=== PATIENT | female | born 1970 | race American Indian/Alaskan Native ===

== ENCOUNTER 2016-11-24 07:19 | Day surgery (SDC) | payer SELFPAY ==
[2016-11-24] MEDS ORDERED: NACL 0.9% 250ML 250 ML IV ONE (08:03)
[2016-11-24] MEDS ORDERED: TYLENOL PO ONE (08:03)
[2016-11-24] MEDS ORDERED: BENADRYL PO ONE (08:04)
[2016-11-24 08:15] LABS: Hematocrit 22.3 % (30.3-42.9); Hemoglobin 6.5 gm/dl (10.1-14.3)
[2016-11-24 13:43] VITALS: BP 103/44
== END 2016-11-24 13:54 | disposition home or self-care (01) ==
LOC: OPU 07:19
PROVIDERS: ATTEND Internal Medicine Hematology & Oncology
DX: D64.9 Anemia, unspecified (principal)
CPT/HCPCS: 36415; 36430; 85014; 85018; 86850; 86900; 86901; 86920; J7050; P9016